=== PATIENT | female | born 1990 | race Caucasian/White ===

== ENCOUNTER 2017-12-09 00:50 | Emergency (ER) | payer OTHER ==
[~2017-12-09] VITALS: Ht 157.5 cm; Wt 54.4 kg
--- NOTE | 2017-12-09 00:51 | NUR ---
PT MARTINE[facility] BLS. TAKEN TO BED 2
[2017-12-09 00:55] VITALS: BP 109/73
--- NOTE | 2017-12-09 00:56 | NUR ---
27/F BIBA FOR ALOC X 1 DAY. PT REPORTS USE OF ALCOHOL, MARIJUANA AND COCAINE YESTERDAY. NO RESPIRATORY DISTRESS NOTED AT THIS TIME. GCS 15, AOX4. DENIES OTHER PMH/RX/OTC
--- NOTE | 2017-12-09 01:08 | NUR ---
Dr. Craig evaluating patient at bedside.
[2017-12-09] MEDS ORDERED: NACL 0.9% 1,000 ML IV ONE (01:20)
[2017-12-09 01:31] LABS: BASOPHILS # (AUTO) 0.1 K/uL (0.00-0.22); BASOPHILS % (AUTO) 1.3 % (0.0-2.0); HEMATOCRIT 42.8 % (36-48); HEMOGLOBIN 14.6 g/dL (12.0-16.0); LYMPHOCYTES % (AUTO) 9.2 % (20.5-51.1); MEAN CORPUSCULAR HEMOGLOBIN 30 pg (27-31); MEAN CORPUSCULAR HGB CONC 34 g/dL (33-37); MEAN CORPUSCULAR VOLUME 88.3 fL (80-94); MONOCYTES # (AUTO) 0.3 K/uL (0.8-1.0); MONOCYTES % (AUTO) 2.7 % (1.7-9.3); NEUTROPHILS # (AUTO) 9.3 K/uL (1.8-7.7); PLATELET COUNT (AUTO) 304 K/uL (140-450); RED BLOOD CELL COUNT(AUTO) 4.85 MIL/uL (4.20-5.40); RED CELL DISTRIBUTION WIDTH 14.1 % (11.6-13.7); WHITE BLOOD COUNT (AUTO) 10.7 K/uL (4.8-10.8)
[2017-12-09 01:40] LABS: NEUTROPHILS % (AUTO) 86.8 % (42.2-75.2)
[2017-12-09 01:41] LABS: ANION GAP 18.3 (8-16); CARBON DIOXIDE 22.4 mmol/L (21-32); CHLORIDE 106 mmol/L (98-107); CREATININE 0.8 mg/dL (0.6-1.3); GFR ARICAN-AMERICAN 112 mL/min (>90); GLUCOSE 129 mg/dL (74-106); POTASSIUM 3.7 mmol/L (3.5-5.1); SODIUM SERUM 143 mmol/L (136-145); UREA NITROGEN, BLOOD 8 mg/dL (7-18)
[2017-12-09 01:50] LABS: ACETAMINOPHEN < 0.5 ug/ml (10-30); ALBUMIN 4.1 g/dL (3.4-5.0); ASPARTATE AMINOTRANSFERASE 15 U/L (15-37); SALICYLATE 2.9 mg/dL (2.8-20.0); TOTAL BILIRUBIN 0.4 mg/dL (0.0-1.0)
[2017-12-09 02:38] LABS: BARBITURATE, URINE NEG. ng/ml (NEG <=200); BENZODIAZEPINE, URINE NEG. ng/mL (NEG <=200); CANNABINOID, URINE POS. ng/mL (NEG <=50); COCAINE, URINE POS. ng/mL (NEG <=300); OPIATE, URINE NEG. ng/mL (NEG <=2000); PHENCYCLIDINE SCREEN,URINE NEG. ng/mL (NEG <=25)
[2017-12-09] MEDS ORDERED: ONDANSETRON 4 MG ODT PO ONE (03:10)
[2017-12-09 03:30] VITALS: BP 112/72
--- NOTE | 2017-12-09 03:30 | NUR ---
Patient discharged with v/s stable. Written and verbal after care instructions given and explained. Patient alert, oriented and verbalized understanding of instructions. Ambulatory with steady gait. All questions addressed prior to discharge. ID band removed. Patient advised to follow up with PMD. Rx of ZOFRAN given. Patient educated on indication of medication including possible reaction and side effects. Opportunity to ask questions provided and answered. Patient presented to facility under the influence of Alcohol/Drugs. Patient is currently ambulatory with steady gait, able to walk unassisted. Positive gag reflex. Alert and oriented. Is not driving self for discharge out of facility.
== END 2017-12-09 03:30 | disposition home or self-care (01) ==
LOC: MED 00:50
DX: F14.10 Cocaine abuse, uncomplicated (principal); R11.2 Nausea with vomiting, unspecified; F10.99 Alcohol use, unspecified with unspecified alcohol-induced disorder
CPT/HCPCS: 36415; 80053; 80305; 81025; 85025; 93005; 96360; 99285; C1758; G0480; G0482; J7030; S0119